=== PATIENT | male | born 1930 | race Caucasian/White ===

== ENCOUNTER 2016-06-03 09:20 | Day surgery (SDC) | payer OTHER ==
--- NOTE | 2016-06-02 15:45 | MB ---
cc: Anne FAROOQ M.D., JOO DATE OF CONSULTATION 05/29/2016 REASON FOR CONSULTATION Pulmonary consultation for a thoracentesis scheduled for next week. HISTORY Mr. Kingston is an 86-year-old white male whom I first saw in March with small pleural effusions. He then was hospitalized at [facility] in mid April for increasing shortness of breath and had a right thoracentesis. Culture of the fluid and cytology were negative. No chemistries reported. I saw him back in the office after that hospitalization. We did a follow-up CT scan on May 26. That reveals fairly significant bilateral pleural effusions left greater than right with pleural nodularity and septations suggesting loculation. I should also mention that the fluid was hemorrhagic when drained on the right in April. He is back in the office today with shortness of breath, but no pain. Appetite has to dwindled and he has lost five pounds. He also saw a home school coordinator because he had an abnormal echocardiogram with left ventricular hypertrophy, diastolic dysfunction and dilated right sided structures, but his left heart was apparently normal with a normal EF and no coronary ischemia on nuclear test. It looks like it is predominantly diastolic heart failure. He had a BNP while in the hospital although that was normal. PAST MEDICAL HISTORY 1. He has a past history of colon cancer 15 years ago. 2. He has had a previous stroke but no significant residual. 3. He has MILTON and is on C-PAP. 4. He has had bilateral hernia repairs. 5. He is also being followed for an elevated PSA by Dr. Casey, may have prostate cancer. ALLERGIES SULFA MEDICATIONS He is on: 1. Baby aspirin 2. previously on Plavix, but has been off that for the last Month. 3. Simvastatin 4. Multiple vitamin 5. Avodart PHYSICAL EXAMINATION An elderly white male in no distress at rest. VITAL SIGNS: 98 degrees, 108/56, pulse 70, RR 18, sat 93% room air. HEAD, EYES, EARS, NOSE, AND THROAT: Sclerae anicteric. Pharynx is clear. Neck veins are flat. No adenopathy in the neck or supraclavicular region. LUNGS: Breath sounds are diminished particularly at the bases with dullness to percussion. No wheezes or congestion. CARDIAC: Regular rhythm. No harsh murmur. ABDOMEN: Soft. EXTREMITIES: No pitting edema or cyanosis. ASSESSMENT/PLAN Mr. Kingston presents with bilateral effusions. A previous thoracentesis on the right was not definitive in terms of establishing a diagnosis, but it was somewhat bloody. We are scheduling him for a thoracentesis on the left for drainage for palliative relief of the dyspnea and also for further evaluation. Further diagnostic and/or therapeutic intervention will depend on the results of this study. I have also explained to he and his daughter, who accompanied him today, that if he would develop increasing shortness of breath prior to his outpatient procedure, he should report directly to the emergency room as he could need to be admitted again. R. MD ALFONSO Casanova/TOMER /10:11 AM /3:45 PM
[2016-06-03 12:00] VITALS: BP 136/72; PULSE 68; RESP 20; TEMP 96.8; O2SAT 97
[2016-06-03 12:15] VITALS: BP 144/69; PULSE 65; RESP 20; TEMP 96.8; O2SAT 97
--- NOTE | 2016-06-03 12:18 | RADRPT ---
EXAM DATE/TIME: 06/03/2016 11:48 [facility] COMPARISON: No previous studies available for comparison. INDICATIONS : Post left thoracentesis. MEDICAL HISTORY : None. SURGICAL HISTORY : None. ENCOUNTER: Initial ACUITY: 1 day PAIN SCORE: 5/10 LOCATION: Left chest FINDINGS: There is no evidence of pneumothorax status post left thoracentesis. A small residual left pleural e ffusion is noted. Bibasilar patchiness is noted consistent with atelectasis and/or infiltrates. Deg enerative changes are noted throughout the thoracic spine. CONCLUSION: 1. No pneumothorax status post left thoracentesis. 2. Small left pleural effusion. 3. Bibasilar patchiness consistent with atelectasis and/or infiltrates. 4. Degenerative changes throughout the thoracic spine. Misael Vaz MD on June 03, 2016 at 12:09 Board Certified Radiologist. This report was verified electronically.
[2016-06-03 13:02] LABS: TOTAL PROTEIN,PLEURAL FLUID 4.2 GM/DL
[2016-06-03 13:10] LABS: PLEURAL FLUID LYMPHS 33 %
--- NOTE | 2016-06-03 15:21 | RADRPT ---
EXAM DATE/TIME: 06/03/2016 10:52 [facility] COMPARISON: No previous studies available for comparison. EXTERNAL COMPARISON: [facility], CT THORAX, W/O CONTRAST, May 26 2016. [facility], CT THORAX, W/O CONTRAST , April 28, 2016. [facility], CHEST- PA & LAT, March 14, 2016. [facility], CHEST - PA & LAT, February 13, 2016. INDICATIONS : Left pleural effusion. MEDICAL HISTORY : Colon cancer. SURGICAL HISTORY : Bilateral hernia repair. ENCOUNTER: Initial ACUITY: 1 day PAIN SCORE: 0/10 LOCATION: Left chest FLUID: Total volume of 450 cc of cloudy, reddish fluid was removed. Fluid was sent to lab for ordered studies. TECHNIQUE: 1. Ultrasound guidance for thoracentesis. 2. Thoracentesis. The risks, benefits, and alternatives to ultrasound guided thoracentesis were explained to the patien t in lay simple terms, including the risk of bleeding and infection. Written and verbal informed con sent was obtained. Appropriate area for thoracentesis was marked under ultrasound guidance with the patient in the uprig ht position. Overlying skin was prepped and draped in the usual sterile fashion and with local anest hetic, a dermatotomy was made with an 11 blade scalpel. A 6 Yemeni thoracentesis catheter was placed in the pleural space and fluid was removed. Catheter was then removed and a sterile dressing applie d. There were no immediate complications. The patient tolerated the procedure well and the left the ultrasound suite in stable condition. Chest radiograph is to be obtained. CONCLUSION: Uncomplicated ultrasound guided left thoracentesis. Misael Vaz MD on June 03, 2016 at 15:19 Board Certified Radiologist. This report was verified electronically.
== END 2016-06-03 12:15 | disposition home or self-care (01) ==
LOC: HRAD 09:20 → HRIP 09:28 → HRAD 12:15
PROVIDERS: ATTEND Internal Medicine
DX: J90 Pleural effusion, not elsewhere classified (principal); G47.33 Obstructive sleep apnea (adult) (pediatric); E78.00 Pure hypercholesterolemia, unspecified; Z79.82 Long term (current) use of aspirin; Z86.73 Personal history of transient ischemic attack (TIA), and cerebral infarction without residual deficits; Z85.038 Personal history of other malignant neoplasm of large intestine
CPT/HCPCS: 32555; 36415; 71010; 82465; 82945; 82947; 83615; 84155; 84157; 87015; 87070; 87102; 87116; 87205; 87206; 88112; 88305; 89051; C1729

== ENCOUNTER 2016-08-01 09:47 | Inpatient (IN) | payer OTHER, MEDICARE ==
[~2016-08-01] VITALS: Ht 172.7 cm; Wt 80.5 kg
[2016-08-11] MEDS ORDERED: AVOD0.5C PO (12:41)
[2016-08-11] MEDS ORDERED: VITA400T18 PO (12:41)
[2016-08-11] MEDS ORDERED: MULT-65 PO (12:41)
[2016-08-11] MEDS ORDERED: VITA100T15 PO (12:41)
[2016-08-11] MEDS ORDERED: VITA500T83 PO (12:41)
[2016-08-11] MEDS ORDERED: CO Q100C9 PO (12:41)
[2016-08-11] MEDS ORDERED: SIMV40TA PO (12:41)
[2016-08-11] MEDS ORDERED: VITA1000 PO (12:41)
[2016-08-11] MEDS ORDERED: FISH1000 PO (12:41)
[2016-08-12] VITALS (10 sets, daily range): BP systolic 124; BP diastolic 61; PULSE 66–74; RESP 24; TEMP 97; O2SAT 96–97
[2016-08-12] MEDS ORDERED: INSULIN HUMAN REGULAR 1,000 UNITS/10 ML VIAL SQ PRN (06:15)
[2016-08-12] MEDS ORDERED: SODIUM CHLORID 0.9% 500 ML IV PRN (06:15)
[2016-08-12] MEDS ORDERED: METOPROLOL TARTRATE 25 MG TAB PO PRN (06:15)
[2016-08-12] MEDS ORDERED: LACTATED RINGER'S 1000 ML IV PRN (06:15)
[2016-08-12] MEDS ORDERED: POVIDONE IODINE 5% (ANTISEPSIS KIT) 4 APPLICATIONS EACH NARE PRN (06:15)
[2016-08-12] MEDS ORDERED: CHLORHEXIDINE GLUCONATE 2 % 1 PACK (2 CLOTHS) TOPICAL PRN (06:15)
[2016-08-12] MEDS ORDERED: BUPIVACAINE LIPOSO PF 1.3% INJ 20 ML, DEXAMETHASONE INJ 4 MG, MORPHINE INJ 10 MG in SOD... P-ARTICULR SCH (07:00)
[2016-08-12] MEDS ORDERED: ceFAZolin INJ 1,000 MG VIAL ONE (07:33)
[2016-08-12] MEDS ORDERED: ACETAMINOPHEN 325 MG TAB PO PRN (09:45)
[2016-08-12] MEDS ORDERED: SODIUM CHLORIDE 0.9% FLUSH 10 ML FLUSH IV FLUSH PRN (09:45)
[2016-08-12] MEDS ORDERED: RESP: ALBUTEROL 2.5 MG/3 ML NEB (PRN) NEB (09:45)
[2016-08-12] MEDS ORDERED: ONDANSETRON HCL 4 MG/2 ML VIAL IV PUSH PRN (09:45)
[2016-08-12] MEDS ORDERED: ACETAMINOPHEN/HYDROcodone 325 MG/5 MG TAB PO PRN (09:45)
[2016-08-12] MEDS ORDERED: MAGNESIUM HYDROXIDE SUSP 30 ML CUP PO PRN (09:45)
[2016-08-12] MEDS ORDERED: Post-op Orders (for Pharmacy) MISC OTHER ONE (09:54)
[2016-08-12] MEDS ORDERED: fentaNYL CITRATE 250 MCG/5 ML AMP ONE (10:07)
--- NOTE | 2016-08-12 10:34 | RADRPT ---
EXAM DATE/TIME: 08/12/2016 10:11 [facility] COMPARISON: CHEST EXPIRATION ONLY, June 03, 2016, 11:48. INDICATIONS : S/p thoracotomy. MEDICAL HISTORY : Carcinoma, colon. SURGICAL HISTORY : hernia repair ENCOUNTER: Initial ACUITY: 1 day PAIN SCORE: Non-responsive. LOCATION: Bilateral chest FINDINGS: A left thoracostomy tube is present. There is also a smaller caliber both sidehole catheter which may be Pleurx catheter. There is sequestered pneumothorax at the lateral left base with interval evacuat ion of effusion. Consolidative changes are present in both bases. Small right effusion is also noted. Cardiac contours are grossly stable. CONCLUSION: Left thoracostomy tube and left chest Pleurx drain in place. Loculated pneumothorax post evacuation o f left effusion Michael Jones MD on August 12, 2016 at 10:29 Board Certified Radiologist. This report was verified electronically.
[2016-08-12] MEDS: ACETAMINOPHEN 1000 MG/100 ML VIAL IV SCH ×3 (11:10→23:28)
[2016-08-12] MEDS: RESP: ALBUTEROL 2.5 MG/3 ML NEB (SCH) NEB ×2 (11:11→20:53)
[2016-08-12] MEDS ORDERED: DO NOT ADM ANY ANTICOAGULANT DRUGS PRN (11:45)
[2016-08-12] MEDS: KETOROLAC TROMETHAMINE 30 MG/ML (IVP) VIAL IV PUSH SCH ×3 (13:18→23:29)
--- NOTE | 2016-08-12 14:11 | PD.OP ---
cc: Sara Ramos MD; Anne Beal MD Operative Report Date of Surgery: Aug 12, 2016 Preoperative Diagnosis: Postoperative Diagnosis: Procedure: 1. Left Video-Assisted Thoracoscopic Surgery (VATS). 2. Evacuation of Pleural Effusion. 3. PleurX catheter placement. 4. Decortication 5. Pleural Biopsy 6. Intercostal Nerve Block . Surgeon: Sara Ramos Automotive Painter(s): Alexia Pacheco Operation and Findings: PREOPERATIVE DIAGNOSES 1. Recurrent Left Pleural Effusion. 2. Loculated Fluid Cavities 3. Empyema POSTOPERATIVE DIAGNOSES Same SURGICAL PROCEDURE 1. Left Video-Assisted Thoracoscopic Surgery (VATS). 2. Evacuation of Pleural Effusion. 3. PleurX catheter placement. 4. Decortication 5. Pleural Biopsy 6. Intercostal Nerve Block SURGEON Sara Ramos MD MATERIAL CHASER STALIN [place] ANESTHESIA General double lumen endotracheal. CALCULUS PROFESSOR FERNANDO Taylor MD PREPARATION ChloraPrep. COUNTS Needle, sponge, and instrument counts are correct. DRAINS One PleurX catheter 32 FR Chest Tube. COMPLICATIONS None. INDICATIONS The patient is a 86 yo gentleman status post previous bilateral thoracenteses for recurrent pleural effusion. The patient is being brought to the operating room for drainage of his left recurrent effusion. DESCRIPTION OF PROCEDURE The patient was brought to the operating room and placed supine on the OR table. Following the induction of adequate general double lumen endotracheal anesthesia and placement of appropriate monitoring devices, the patient was placed in the right lateral decubitus position. The left chest and surrounding areas were then prepped and draped in a standard sterile fashion. A 5 mm camera port was introduced into the 8th intercostal space in posterior axillary line, and the camera introduced. A second 5 mm port was then placed anteriorly under direct visual guidance. Through the port, the suction device was advanced, and approximately 675 mls of bloody fluid evacuated and sent for cytologic and microbiologic analysis. There were multiple loculated fluid cavities in addition to a thick peel around the left lung and the surrounding chest wall. All the loculations were divided and the empyema decorticated. Pleural biopsy was performed and sent for histological analysis. Complete evacuation of all fluid was confirmed under visual guidance. The anterior port was removed and a PleurX catheter was introduced and tunneled for about 5 cm and exited through the anterolateral chest wall. This was maintained in place with a nonabsorbable suture. An additional [address] was placed postero-apically through a separate stab wound. Both of the entry sites were injected with Exparel solution as was the port site. Following confirmation of the catheter in the proper place, the incisions were closed with 3 layers. The chest tube was attached to a suction device, and sterile dressing applied. Intercostal nerve block was performed using Ropivacaine/Morphine solution. The patient tolerated the procedure well and was extubated and transferred to the recovery room in stable condition. Sara Ramos MD Aug 12, 2016 14:11
[2016-08-12] MEDS: SODIUM CHLORIDE 0.9% FLUSH 10 ML FLUSH IV FLUSH SCH (20:56)
[2016-08-12] MEDS: PANTOPRAZOLE SOD 40 MG DELAYED RELEASE TAB PO SCH (20:56)
[2016-08-12] MEDS: DOCUSATE CALCIUM 240 MG CAP PO SCH (20:56)
[2016-08-13] VITALS (25 sets, daily range): BP systolic 112–152; BP diastolic 56–82; PULSE 58–100; RESP 18–20; TEMP 97.5–98.6; O2SAT 95–100
[2016-08-13] MEDS: RESP: ALBUTEROL 2.5 MG/3 ML NEB (SCH) NEB ×5 (03:12→19:11)
[2016-08-13] MEDS: KETOROLAC TROMETHAMINE 30 MG/ML (IVP) VIAL IV PUSH SCH (05:21)
[2016-08-13] MEDS: ACETAMINOPHEN 1000 MG/100 ML VIAL IV SCH (05:23)
[2016-08-13 06:33] LABS: AUTOMATED NEUTROPHIL # 5.9 TH/MM3 (1.8-7.7); BASOPHIL % 0.2 % (0.0-2.0); HEMATOCRIT 34.9 % (39.0-51.0); HEMO FLAGS DIFF FINAL; LYMPH % 12.5 % (9.0-44.0); LYMPHOCYTE # 0.9 TH/MM3 (1.0-4.8); MEAN CELL VOLUME 93.8 FL (80.0-100.0); MEAN CORPUSCULAR HEMOGLOBIN 31.5 PG (27.0-34.0); MEAN CORPUSCULAR HGB CONC 33.6 % (32.0-36.0); MONO % 8.9 % (0.0-8.0); NEUT % 78.4 % (16.0-70.0); PLATELET COUNT 204 TH/MM3 (150-450); RED BLOOD COUNT 3.72 MIL/MM3 (4.50-5.90); RED CELL DISTRIBUTION WIDTH 14.5 % (11.6-17.2); WHITE BLOOD COUNT 7.5 TH/MM3 (4.0-11.0)
[2016-08-13 06:55] LABS: BICARBONATE 33.2 MEQ/L (21.0-32.0); POTASSIUM 4.7 MEQ/L (3.5-5.1)
[2016-08-13] MEDS: SODIUM CHLORIDE 0.9% FLUSH 10 ML FLUSH IV FLUSH SCH ×2 (07:43→21:00)
--- NOTE | 2016-08-13 14:12 | PD.CAR.PN ---
CVT Progress Note Subjective/Hospital Course: 86 yo with recurrent bilateral pleural effusions, s/p multiple thoracenteses 08/12 SURGICAL PROCEDURE 1. Left Video-Assisted Thoracoscopic Surgery (VATS). 2. Evacuation of Pleural Effusion. 3. PleurX catheter placement. 4. Decortication 5. Pleural Biopsy 6. Intercostal Nerve Block 08/13 Doing well Ambulating in hallway Maintain CT Likely D/C CT tomorrow and discharge home Objective: Vital Signs Date Time Temp Pulse Resp B/P Pulse Ox O2 Delivery O2 Flow Rate FiO2 08/13/16 14:04 74 08/13/16 13:13 71 08/13/16 12:04 71 08/13/16 11:29 64 08/13/16 11:29 97 Nasal Cannula 2.00 08/13/16 11:29 98.0 64 18 112/58 97 08/13/16 10:32 65 08/13/16 09:54 68 08/13/16 09:46 96 Nasal Cannula 2.00 08/13/16 08:45 58 08/13/16 08:45 100 Nasal Cannula 3.00 08/13/16 08:45 97.5 69 18 118/56 100 08/13/16 06:00 64 08/13/16 05:00 78 08/13/16 04:03 69 08/13/16 03:56 97 Nasal Cannula 2.50 08/13/16 03:00 60 08/13/16 02:00 62 08/13/16 01:00 68 08/13/16 00:00 62 08/13/16 00:00 97 Nasal Cannula 2.50 08/12/16 23:00 68 08/12/16 22:00 74 08/12/16 21:00 70 08/12/16 20:53 97 Nasal Cannula 2.00 08/12/16 20:00 97 Nasal Cannula 2.00 08/12/16 20:00 66 08/12/16 19:28 18 08/12/16 19:28 18 08/12/16 19:00 70 08/12/16 18:00 74 08/12/16 17:00 70 08/12/16 16:00 74 08/12/16 15:50 97.8 71 16 110/58 95 Nasal Cannula 2 08/12/16 15:00 70 15 110/55 96 Nasal Cannula 2 Labs: Laboratory Tests Test 08/13/16 05:16 White Blood Count 7.5 TH/MM3 (4.0-11.0) Red Blood Count 3.72 MIL/MM3 (4.50-5.90) Hemoglobin 11.7 GM/DL (13.0-17.0) Hematocrit 34.9 % (39.0-51.0) Mean Corpuscular Volume 93.8 FL (80.0-100.0) Mean Corpuscular Hemoglobin 31.5 PG (27.0-34.0) Mean Corpuscular Hemoglobin 33.6 % Concent (32.0-36.0) Red Cell Distribution Width 14.5 % (11.6-17.2) Platelet Count 204 TH/MM3 (150-450) Mean Platelet Volume 8.4 FL (7.0-11.0) Neutrophils (%) (Auto) 78.4 % (16.0-70.0) Lymphocytes (%) (Auto) 12.5 % (9.0-44.0) Monocytes (%) (Auto) 8.9 % (0.0-8.0) Eosinophils (%) (Auto) 0.0 % (0.0-4.0) Basophils (%) (Auto) 0.2 % (0.0-2.0) Neutrophils # (Auto) 5.9 TH/MM3 (1.8-7.7) Lymphocytes # (Auto) 0.9 TH/MM3 (1.0-4.8) Monocytes # (Auto) 0.7 TH/MM3 (0-0.9) Eosinophils # (Auto) 0.0 TH/MM3 (0-0.4) Basophils # (Auto) 0.0 TH/MM3 (0-0.2) CBC Comment DIFF FINAL Differential Comment Sodium Level 142 MEQ/L (136-145) Potassium Level 4.7 MEQ/L (3.5-5.1) Chloride Level 104 MEQ/L (98-107) Carbon Dioxide Level 33.2 MEQ/L (21.0-32.0) Anion Gap 5 MEQ/L (5-15) Blood Urea Nitrogen 16 MG/DL (7-18) Creatinine 0.67 MG/DL (0.60-1.30) Estimat Glomerular Filtration 113 ML/MIN Rate (>89) Random Glucose 113 MG/DL (74-106) Calcium Level 8.7 MG/DL (8.5-10.1) Result Diagram: 08/13/16 0516 08/13/16 0516 Sara Ramos MD Aug 13, 2016 14:12
[2016-08-13] MEDS: PANTOPRAZOLE SOD 40 MG DELAYED RELEASE TAB PO SCH (20:42)
[2016-08-13] MEDS: DOCUSATE CALCIUM 240 MG CAP PO SCH (20:42)
[2016-08-14] VITALS (29 sets, daily range): BP systolic 137–154; BP diastolic 60–74; PULSE 68–103; RESP 16–22; TEMP 97.9–98.6; O2SAT 91–98
[2016-08-14] MEDS: RESP: ALBUTEROL 2.5 MG/3 ML NEB (SCH) NEB ×4 (04:10→22:40)
--- NOTE | 2016-08-14 08:12 | PD.CAR.PN ---
CVT Progress Note Subjective/Hospital Course: 86 yo with recurrent bilateral pleural effusions, s/p multiple thoracenteses 08/12 SURGICAL PROCEDURE 1. Left Video-Assisted Thoracoscopic Surgery (VATS). 2. Evacuation of Pleural Effusion. 3. PleurX catheter placement. 4. Decortication 5. Pleural Biopsy 6. Intercostal Nerve Block 08/13 Doing well Ambulating in hallway Maintain CT Likely D/C CT tomorrow and discharge home 08/[address] for another day D/C CT tomorrow with plans for [facility] to drain PleurX daily D/C home tomorrow Objective: Vital Signs Date Time Temp Pulse Resp B/P Pulse Ox O2 Delivery O2 Flow Rate FiO2 08/14/16 07:30 16 08/14/16 07:27 77 08/14/16 06:31 79 08/14/16 05:00 81 08/14/16 04:13 91 21 08/14/16 04:00 103 08/14/16 03:00 97.9 95 20 138/74 94 08/14/16 03:00 94 Nasal Cannula 1.00 08/14/16 03:00 76 08/14/16 02:00 72 08/14/16 01:00 68 08/14/16 00:00 74 08/13/16 23:00 96 Nasal Cannula 1.00 08/13/16 23:00 71 08/13/16 23:00 98.5 80 20 148/74 96 08/13/16 22:00 78 08/13/16 21:00 78 08/13/16 20:00 79 08/13/16 19:19 98 Nasal Cannula 2.00 08/13/16 19:00 96 Nasal Cannula 1.00 08/13/16 19:00 98.6 76 18 133/68 96 08/13/16 19:00 76 08/13/16 18:05 78 08/13/16 17:13 81 08/13/16 16:15 100 08/13/16 15:30 95 Nasal Cannula 1.00 08/13/16 15:30 78 08/13/16 15:30 98.2 77 18 152/82 95 08/13/16 14:04 74 08/13/16 13:13 71 08/13/16 12:04 71 08/13/16 11:29 64 08/13/16 11:29 97 Nasal Cannula 2.00 08/13/16 11:29 98.0 64 18 112/58 97 08/13/16 10:32 65 08/13/16 09:54 68 08/13/16 09:46 96 Nasal Cannula 2.00 08/13/16 08:45 58 08/13/16 08:45 100 Nasal Cannula 3.00 08/13/16 08:45 97.5 69 18 118/56 100 Result Diagram: 08/13/16 0516 08/13/16 0516 Sara Ramos MD Aug 14, 2016 08:12
[2016-08-14] MEDS ORDERED: DOCU2.5C PO (08:16)
[2016-08-14] MEDS ORDERED: HYDR-3516 PO (08:16)
--- NOTE | 2016-08-14 08:18 | HHI.FF ---
Face to Face Verification Diagnosis: (1) Empyema lung (2) Pleural effusion Home Health Nursing Order: Medical education Wound care and dressing changes Nursing assessment with vital signs Instructions: Drain Pleur X catheter daily and record outputs please I have seen patient Yannick Kingston on 08/14/16. My clinical findings support the need for the requested home health care services because: Deconditioned w/ increased weakness I certify that my clinical findings support that this patient is homebound because: Post-op weakness Sara Ramos MD Aug 14, 2016 08:18
[2016-08-14] MEDS: SODIUM CHLORIDE 0.9% FLUSH 10 ML FLUSH IV FLUSH SCH ×2 (09:00→21:27)
[2016-08-14] MEDS: PANTOPRAZOLE SOD 40 MG DELAYED RELEASE TAB PO SCH (21:27)
[2016-08-14] MEDS: DOCUSATE CALCIUM 240 MG CAP PO SCH (21:27)
[2016-08-15] VITALS (27 sets, daily range): BP systolic 139–159; BP diastolic 72–79; PULSE 80–96; RESP 18–20; TEMP 97.7–98.4; O2SAT 94–96
[2016-08-15] MEDS: RESP: ALBUTEROL 2.5 MG/3 ML NEB (SCH) NEB ×4 (04:30→21:21)
[2016-08-15] MEDS: SODIUM CHLORIDE 0.9% FLUSH 10 ML FLUSH IV FLUSH SCH ×2 (08:26→20:41)
[2016-08-15] MEDS: ACETAMINOPHEN/HYDROcodone 325 MG/5 MG TAB PO PRN (14:57)
[2016-08-15] MEDS: DOCUSATE CALCIUM 240 MG CAP PO SCH (20:40)
[2016-08-15] MEDS: PANTOPRAZOLE SOD 40 MG DELAYED RELEASE TAB PO SCH (20:40)
[2016-08-16] VITALS (15 sets, daily range): BP systolic 126–154; BP diastolic 54–78; PULSE 74–89; RESP 15–18; TEMP 97.6–98.5; O2SAT 93–96
[2016-08-16] MEDS: RESP: ALBUTEROL 2.5 MG/3 ML NEB (SCH) NEB ×2 (03:53→09:32)
[2016-08-16] MEDS: SODIUM CHLORIDE 0.9% FLUSH 10 ML FLUSH IV FLUSH SCH (09:34)
--- NOTE | 2016-08-16 11:28 | HHI.DS ---
Discharge Summary Admission Date Aug 12, 2016 at 05:33 Discharge Date: Aug 16, 2016 Admitting Diagnosis Recurrent left pleural effusion (1) Pleural effusion Diagnosis: Principal Procedures Left VATS to drain pleural effusion, pleurex catheter placement Brief History 86 yo with recurrent bilateral pleural effusions, s/p multiple thoracenteses CBC/BMP: 08/13/16 0516 08/13/16 0516 Imaging Last Impressions Chest X-Ray 08/12/16 0000 Signed Impressions: Service Date/Time: Friday, August 12, 2016 10:11 - CONCLUSION: Left thoracostomy tube and left chest Pleurx drain in place. Loculated pneumothorax post evacuation of left effusion Michael Jones MD PE at Discharge chest - CTA COR - RRR ABD - soft, NT Hospital Course 08/12 SURGICAL PROCEDURE 1. Left Video-Assisted Thoracoscopic Surgery (VATS). 2. Evacuation of Pleural Effusion. 3. PleurX catheter placement. 4. Decortication 5. Pleural Biopsy 6. Intercostal Nerve Block 08/13 Doing well Ambulating in hallway Maintain CT Likely D/C CT tomorrow and discharge home 08/[address] for another day D/C CT tomorrow with plans for [facility] to drain PleurX daily D/C home tomorrow Pt Condition on Discharge: Good Discharge Disposition: Disch w/ Home Health Serv Discharge Instructions DIET: Follow Instructions for: Heart Healthy Diet Activities you can perform: Weight Bearing as Moriah, Shower Only-No Bath Follow up Referrals: Appointment for Follow Up with Sara Ramos MD Appointment for Follow Up with Anne Beal MD Appointment for Follow Up with Dr Zoraida Garcia New Medications: Docusate Calcium (Sm Stool Softener) 240 Mg Cap 240 MG PO HS c Days 14 CAP Hydrocodone-Acetaminophen (Hydrocodone-Acetaminophen) 5-325 mg Tab 1 TAB PO Q6HR PRN PAIN SCALE 3 TO 5 #20 TAB Continued Medications: Ascorbic Acid ER (Vitamin C ER) 500 Mg Brandon 500 MG PO DAILY Nutritional Supplement Ref 0 TAB Cholecalciferol (Vitamin D-1000) 1,000 Unit Tab 1000 UNITS PO DAILY Nutritional Supplement #1 Ref 0 BOTTLE Coenzyme Q10 (Ubidecarenone) (Co Q 10) 100 Mg Cap 100 MG PO DAILY Cyanocobalamin (Vitamin B12) 100 Mcg Tab 100 MCG PO DAILY #1 BOTTLE Dutasteride (Avodart) 0.5 Mg Cap 0.5 MG PO DAILY Manage Prostate Problems #30 Ref 0 CAP Multiple Vitamin (Multi-Vitamin Daily) 1 Tab Tab 1 TAB PO DAILY Nutritional Supplement Ref 0 TAB [place]-3 Fatty Acids (Fish Oil) 1,000 Mg Cap 1000 MG PO DAILY Simvastatin (Simvastatin) 40 Mg Tab 40 MG PO HS Cholesterol Management #30 Ref 0 TAB Vitamin E Acid Succinate (Vitamin E) 400 Unit Tablet 400 UNIT PO DAILY Naz Licea MD Aug 16, 2016 11:28
[2016-08-16] MEDS: ACETAMINOPHEN/HYDROcodone 325 MG/5 MG TAB PO PRN (12:44)
== END 2016-08-16 14:20 | disposition home or self-care (01) | DRG 163 ==
LOC: HSDI 08-12 05:33 → HCIN 08-12 15:56
PROVIDERS: ADMIT Thoracic Surgery (Cardiothoracic Vascular Surgery); ATTEND Thoracic Surgery (Cardiothoracic Vascular Surgery)
PROC: 0BBP4ZX Excision of Left Pleura, Percutaneous Endoscopic Approach, Diagnostic (ICD-10-PCS; 2016-08-12)
PROC: 0W9B40Z Drainage of Left Pleural Cavity with Drainage Device, Percutaneous Endoscopic Approach (ICD-10-PCS; 2016-08-12)
PROC: 3E0T3CZ (ICD-10-PCS; 2016-08-12)
PROC: 0BDP4ZZ Extraction of Left Pleura, Percutaneous Endoscopic Approach (ICD-10-PCS; principal; 2016-08-12 07:18)
DX: J90 Pleural effusion, not elsewhere classified (principal); J86.9 Pyothorax without fistula; J44.9 Chronic obstructive pulmonary disease, unspecified; Z88.2 Allergy status to sulfonamides; E78.5 Hyperlipidemia, unspecified; I25.2 Old myocardial infarction; Z86.73 Personal history of transient ischemic attack (TIA), and cerebral infarction without residual deficits; Z85.038 Personal history of other malignant neoplasm of large intestine
CPT/HCPCS: 36415; 71010; 80048; 81001; 85025; 85027; 85610; 85730; 86850; 86900; 86901; 87015; 87070; 87102; 87116; 87205; 87206; 88112; 88305; 93005; 94150; 94640; 94664; C9290; J0131; J0690; J1100; J1885; J2270; J3010; J7120; J7613

== ENCOUNTER → 2016-08-11 | Outpatient (CLI) | payer OTHER ==
[~2016-08-11] MED LIST: AVOD0.5C PO; CO Q100C9 PO; DOCU2.5C PO; FISH1000 PO; HYDR-3516 PO; MULT-65 PO; SIMV40TA PO; VITA1000 PO; VITA100T15 PO; VITA400T18 PO; VITA500T83 PO
[2016-08-11 13:24] LABS: HEMATOCRIT 41.6 % (39.0-51.0); MEAN CELL VOLUME 94.9 FL (80.0-100.0); MEAN CORPUSCULAR HEMOGLOBIN 30.6 PG (27.0-34.0); MEAN CORPUSCULAR HGB CONC 32.2 % (32.0-36.0); PLATELET COUNT 228 TH/MM3 (150-450); RED BLOOD COUNT 4.38 MIL/MM3 (4.50-5.90); RED CELL DISTRIBUTION WIDTH 14.9 % (11.6-17.2); REVIEW FLAG FINAL; WHITE BLOOD COUNT 6.3 TH/MM3 (4.0-11.0)
[2016-08-11 13:33] LABS: APTT (PATIENT) 28.1 SEC (24.3-30.1); PROTHROMBIN TIME - PATIENT 10.7 SEC (9.8-11.6)
[2016-08-11 13:33] LABS: BLOOD, URINE NEG (NEG); CALCIUM OXALATE CRYSTALS,URINE RARE /hpf; COMMENT (UR) CULT NOT INDICATED; CULTURE IF INDICATED CULT NOT INDICATED; GLUCOSE,URINE NEG (NEG); KETONE, URINE NEG (NEG); MUCUS URINE FEW /lpf (OCC); NITRITE,URINE NEG (NEG); PH, URINE 6.5 (5.0-8.5); URINE COLOR YELLOW (YELLW/STRAW)
[2016-08-11 13:45] LABS: BICARBONATE 33.9 MEQ/L (21.0-32.0); POTASSIUM 4.6 MEQ/L (3.5-5.1)
--- NOTE | 2016-08-12 16:50 | EKG ---
Date Performed: 08/11/2016 Time Performed: 12:32:39 PTAGE: 86 years EKG: Sinus rhythm POSSIBLE LEFT ATRIAL ENLARGEMENT POSSIBLE RIGHT VENTRICULAR CONDUCTION DELAY BORDERLINE ECG NO PREVIOUS TRACING DOCTOR: Jamel Carrera Interpretating Date/Time 08/12/2016 16:48:10
== END ==
LOC: CPRE 12:01
PROVIDERS: ATTEND Thoracic Surgery (Cardiothoracic Vascular Surgery)
DX: Z01.812 Encounter for preprocedural laboratory examination (principal); Z01.810 Encounter for preprocedural cardiovascular examination; J90 Pleural effusion, not elsewhere classified; R94.31 Abnormal electrocardiogram [ECG] [EKG]
CPT/HCPCS: 36415; 80048; 81001; 85027; 85610; 85730; 86850; 86900; 86901; 93005

== ENCOUNTER → 2016-09-24 | Day surgery (SDC) | payer OTHER ==
[~2016-09-24] VITALS: Ht 172.7 cm; Wt 77.6 kg
[~2016-09-24] MED LIST changes: +BUPIVACAINE HCL PF 0.5% 30 ML VIAL ONE; +CHLORHEXIDINE GLUCONATE 2 % 1 PACK (2 CLOTHS) TOPICAL PRN; +GENTAMICIN SULFATE 80 MG/2 ML VIAL ONE; +INSULIN HUMAN REGULAR 1,000 UNITS/10 ML VIAL SQ PRN; +LACTATED RINGER'S 1000 ML IV PRN; +METOPROLOL TARTRATE 25 MG TAB PO PRN; +MIDAZOLAM HCL 2 MG/2 ML VIAL ONE; +POVIDONE IODINE 5% (ANTISEPSIS KIT) 4 APPLICATIONS EACH NARE PRN; +PROPOFOL 200 MG/20 ML AMP IV ONE; +SODIUM CHLORID 0.9% 500 ML IV PRN; +VANCOMYCIN 500 MG VIAL ONE; +ceFAZolin INJ 1,000 MG VIAL ONE
[2016-09-24 06:08] VITALS: BP 125/59; PULSE 69; RESP 20; TEMP 97.7; O2SAT 96
[2016-09-24 06:24] LABS: APTT (PATIENT) 25.8 SEC (24.3-30.1); PROTHROMBIN TIME - PATIENT 10.8 SEC (9.8-11.6)
--- NOTE | 2016-09-24 08:12 | PD.OP ---
cc: Sara Ramos MD Operative Report Date of Surgery: Sep 24, 2016 Preoperative Diagnosis: Postoperative Diagnosis: Procedure: Removal of Pleur-X catheter Surgeon: Sara Ramos Hooking Machine Operator(s): Alexia Cobian Operation and Findings: DATE OF SURGERY 09/24/16 PREOPERATIVE DIAGNOSIS 1. Recurrent Left pleural effusion 2. Status post pleurodesis and Pleur-X catheter placement. 3. Resolving pleural effusion. SURGICAL PROCEDURES Removal of Pleur-X catheter SURGEON Dr. Deejay Ramos PACKAGE LIFT OPERATOR Chapo Cobian, [facility] ANESTHESIA Local with IV sedation SUPERINTENDENT PRODUCTION FERNANDO Rosas MD Sponge, instrument counts correct. DRAINS Bone COMPLICATIONS None. INDICATION Mr. Duke is 86 year old gentleman with recurrent left pleural effusion who underwent a left VATS with decortication and Pleur-X catheter placement. With resolution of his pleural drainage and minimal output from his catheter, he is now being taken back to the operating room for removal of the catheter. PROCEDURE IN DETAIL The patient was brought to the operating room and placed supine on the OR table. Following the placement of appropriate monitoring devices. IV sedation was given and the left chest and surrounding area were prepped and draped in standard sterile fashion. The area overlying the exit site of the Pleurx catheter as well as the tunnelled portion was anesthetized with 0.5% Marcaine with epinephrine. The securing stitch was then removed and with gentle blunt and sharp dissection, the polyester cuff was then dissected free off the subcutaneous tissue and the Pleurx catheter was removed on bloc in its entirety without any difficulties. Sterile dressing was applied over the exit site and the patient was transferred to recovery room in stable condition. Sara Ramos MD Sep 24, 2016 08:12
[2016-09-24 08:40] VITALS: BP 114/52; PULSE 67; RESP 18; TEMP 97; O2SAT 96
--- NOTE | 2016-09-24 10:32 | RADRPT ---
EXAM DATE/TIME: 09/24/2016 09:31 [facility] COMPARISON: CHEST SINGLE AP, August 12, 2016, 10:11. INDICATIONS : Left chest tube removal. MEDICAL HISTORY : Carcinoma, colon. SURGICAL HISTORY : hernia repair ENCOUNTER: Initial ACUITY: 1 day PAIN SCORE: 0/10 LOCATION: Bilateral chest FINDINGS: Left-sided chest tube and Pleurx tube have been removed. A loculated air pocket remains evident in the left base laterally. Significant opacity persists within the right base with blunting of the costophrenic angle. Heart and mediastinal structures are stable. CONCLUSION: 1. Small loculated pneumothorax in the left lung base without significant fluid accumulation. 2. Status post removal of chest tube and Pleurx catheter 3. Persistent opacity in the right lung base with small effusion. Jeremie Gomez MD on September 24, 2016 at 10:22 Board Certified Radiologist. This report was verified electronically.
== END | disposition home or self-care (01) ==
LOC: HSDC 05:23
PROVIDERS: ATTEND Thoracic Surgery (Cardiothoracic Vascular Surgery)
DX: J90 Pleural effusion, not elsewhere classified (principal); Z01.818 Encounter for other preprocedural examination
CPT/HCPCS: 00520; 32552; 71010; 85610; 85730; J0690; J1580; J2250; J3010; J3370

== ENCOUNTER 2016-12-04 10:55 | Emergency (ER) | payer OTHER ==
[~2016-12-04] VITALS: Ht 172.7 cm; Wt 75.0 kg
[~2016-12-04 10:55] MED LIST changes: -BUPIVACAINE HCL PF 0.5% 30 ML VIAL ONE; -CHLORHEXIDINE GLUCONATE 2 % 1 PACK (2 CLOTHS) TOPICAL PRN; -GENTAMICIN SULFATE 80 MG/2 ML VIAL ONE; -INSULIN HUMAN REGULAR 1,000 UNITS/10 ML VIAL SQ PRN; -LACTATED RINGER'S 1000 ML IV PRN; -METOPROLOL TARTRATE 25 MG TAB PO PRN; -MIDAZOLAM HCL 2 MG/2 ML VIAL ONE; -POVIDONE IODINE 5% (ANTISEPSIS KIT) 4 APPLICATIONS EACH NARE PRN; -PROPOFOL 200 MG/20 ML AMP IV ONE; -SODIUM CHLORID 0.9% 500 ML IV PRN; -VANCOMYCIN 500 MG VIAL ONE; -ceFAZolin INJ 1,000 MG VIAL ONE
[2016-12-04 10:56] VITALS: BP 129/60; PULSE 83; RESP 20; TEMP 98.4; O2SAT 98
[2016-12-04] MEDS ORDERED: SODIUM CHLORIDE 0.9% FLUSH 5 ML FLUSH IV FLUSH PRN (11:30)
--- NOTE | 2016-12-04 11:58 | PD ---
HPI Chief Complaint: Altered Mental Status Time Seen by Provider: 11:21 Travel History International Travel<30 days: No Contact w/Intl Traveler<30days: No Traveled to known affect area: No History of Present Illness HPI Patient comes in with his daughter from his primary care doctor's office for evaluation of altered mental status ongoing over the past year. His daughter reports that she noticed that he was becoming confused, having auditory and visual hallucinations about a year ago and has been getting progressively worse over the past several months. Patient states she took him to the primary care doctor to make sure he didn't have a urinary tract infection as she heard that this could cause these symptoms. Reports that they did a urinalysis in the office that was negative and was sent here for rule out possibly a stroke. Daughter states patient does not complain of any pain and has had no fevers. Denies anything making this better. States is progressively getting worse. Patient denies any complaints or concerns. Denies any pain anywhere, shortness of breath, abdominal pain, chest pain, headache, or fevers. 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) Diabetes: No Diminished Hearing: Yes Endocrine: No Genitourinary: No Hepatitis: No Hiatal Hernia: No Immune Disorder: No Medical other: Yes (PROSTATE ISSUES) Musculoskeletal: No Neurologic: Yes (tia) Psychiatric: Yes (alzheimers) Reproductive: No Respiratory: Yes (COPD) Radiation Therapy: No Sleep Apnea: Yes Thyroid Disease: No Past Surgical History Abdominal Surgery: Yes (BILATERAL INGUINAL HERNIA REPAIR WITH MESH, COLON RESECTION) AICD: No Body Medical Devices: ABDOMINAL MESH, left lung pleurex Cardiac Surgery: No Ear Surgery: No Endocrine Surgery: No Eye Surgery: No Genitourinary Surgery: No Gynecologic Surgery: No Joint Replacement: No Neurologic Surgery: No Oral Surgery: No Pacemaker: No Thoracic Surgery: Yes (THORACOTOMY x2, each lung drained once and pleurex placed L lung) Other Surgery: Yes Social History Alcohol Use: No Tobacco Use: No Substance Use: No Allergies-Medications (Allergen,Severity, Reaction): Coded Allergies: Sulfa (Sulfonamide Antibiotics) (Unverified Allergy, Severe, Hives, ) Reported Meds & Prescriptions Reported Meds & Active Scripts Active Hydrocodone-Acetaminophen 5-325 mg Tab 1 Tab PO Q6HR PRN Sm Stool Softener (Docusate Calcium) 240 Mg Cap 240 Mg PO HS 14 Days Reported Vitamin C ER (Ascorbic Acid) 500 Mg Brandon 500 Mg PO DAILY Vitamin E (Vitamin E Acid Succinate) 400 Unit Tablet 400 Unit PO DAILY Co Q 10 (Coenzyme Q10 (Ubidecarenone)) 100 Mg Cap 100 Mg PO DAILY Vitamin B12 (Cyanocobalamin) 100 Mcg Tab 100 Mcg PO DAILY Fish Oil ([place]-3 Fatty Acids) 1,000 Mg Cap 1,000 Mg PO DAILY Vitamin D-1000 (Cholecalciferol) 1,000 Unit Tab 1,000 Units PO DAILY Multi-Vitamin Daily (Multiple Vitamin) 1 Tab Tab 1 Tab PO DAILY Avodart (Dutasteride) 0.5 Mg Cap 0.5 Mg PO DAILY Simvastatin 40 Mg Tab 40 Mg PO HS Review of Systems Except as stated in HPI: all other systems reviewed are Neg Physical Exam Narrative GENERAL: Well-developed, well nourished, in no acute distress, and non-ill appearing. SKIN: Focused skin assessment warm and dry. HEAD: Atraumatic. Normocephalic. EYES: Pupils equal and round. EOMI. No scleral icterus. No injection or drainage. ENT: No nasal bleeding or discharge. Mucous membranes pink and moist. NECK: Trachea midline. Supple. No nuclear rigidity. CARDIOVASCULAR: Regular rate and rhythm. No murmur appreciated. RESPIRATORY: No accessory muscle use. No respiratory distress. Clear to auscultation. Breath sounds equal bilaterally. GASTROINTESTINAL: Abdomen soft, non-tender, nondistended, and no guarding. Hepatic and splenic margins not palpable. No pulsatile mass. MUSCULOSKELETAL: No obvious deformities. No clubbing. No cyanosis. No edema. Full range of motion. NEUROLOGICAL: Awake and alert. No obvious cranial nerve deficits. Motor grossly within normal limits. Normal speech. PSYCHIATRIC: Appropriate mood and affect; insight and judgment normal. Data Data Last Documented VS Vital Signs Date Time Temp Pulse Resp B/P (MAP) Pulse Ox O2 Delivery O2 Flow Rate FiO2 12/04/16 10:56 98.4 83 20 129/60 (83) 98 Orders Orders Basic Metabolic Panel (Bmp) (12/04/16 11:28) Complete Blood Count With Diff (12/04/16 11:28) Urinalysis - C+S If Indicated (12/04/16 11:28) Ct Brain W/O Iv Contrast(Rout) (12/04/16 11:28) Ecg Monitoring (12/04/16 11:28) Iv Access Insert/Monitor (12/04/16 11:28) Oximetry (12/04/16 11:28) Sodium Chloride 0.9% Flush (Ns Flush) (12/04/16 11:30) Magnesium (Mg) (12/04/16 11:28) Ed Discharge Order (12/04/16 13:20) Labs Laboratory Tests Test 12/04/16 11:48 White Blood Count 5.2 TH/MM3 Red Blood Count 4.09 MIL/MM3 Hemoglobin 12.7 GM/DL Hematocrit 39.0 % Mean Corpuscular Volume 95.5 FL Mean Corpuscular Hemoglobin 31.1 PG Mean Corpuscular Hemoglobin Concent 32.5 % Red Cell Distribution Width 14.8 % Platelet Count 190 TH/MM3 Mean Platelet Volume 8.0 FL Neutrophils (%) (Auto) 77.4 % Lymphocytes (%) (Auto) 12.5 % Monocytes (%) (Auto) 9.3 % Eosinophils (%) (Auto) 0.5 % Basophils (%) (Auto) 0.3 % Neutrophils # (Auto) 4.0 TH/MM3 Lymphocytes # (Auto) 0.6 TH/MM3 Monocytes # (Auto) 0.5 TH/MM3 Eosinophils # (Auto) 0.0 TH/MM3 Basophils # (Auto) 0.0 TH/MM3 CBC Comment DIFF FINAL Differential Comment Urine Color YELLOW Urine Turbidity CLEAR Urine pH 6.5 Urine Specific [place] 1.017 Urine Protein NEG mg/dL Urine Glucose (UA) NEG mg/dL Urine Ketones NEG mg/dL Urine Occult Blood NEG Urine Nitrite NEG Urine Bilirubin NEG Urine Urobilinogen LESS THAN 2.0 MG/DL Urine Leukocyte Esterase SMALL Urine RBC 4 /hpf Urine WBC 2 /hpf Urine Squamous Epithelial Cells <1 /hpf Urine Mucus FEW /lpf Microscopic Urinalysis Comment CATH-CULT NOT IND Blood Urea Nitrogen 16 MG/DL Creatinine 0.67 MG/DL Random Glucose 116 MG/DL Calcium Level 8.5 MG/DL Magnesium Level 2.4 MG/DL Sodium Level 140 MEQ/L Potassium Level 4.4 MEQ/L Chloride Level 102 MEQ/L Carbon Dioxide Level 36.0 MEQ/L Anion Gap 2 MEQ/L Estimat Glomerular Filtration Rate 113 ML/MIN MDM Medical Decision Making Medical Screen Exam Complete: Yes Emergency Medical Condition: Yes Interpretation(s) Laboratory Tests Test 12/04/16 11:48 White Blood Count 5.2 TH/MM3 (4.0-11.0) Red Blood Count 4.09 MIL/MM3 (4.50-5.90) Hemoglobin 12.7 GM/DL (13.0-17.0) Hematocrit 39.0 % (39.0-51.0) Mean Corpuscular Volume 95.5 FL (80.0-100.0) Mean Corpuscular Hemoglobin 31.1 PG (27.0-34.0) Mean Corpuscular Hemoglobin Concent 32.5 % (32.0-36.0) Red Cell Distribution Width 14.8 % (11.6-17.2) Platelet Count 190 TH/MM3 (150-450) Mean Platelet Volume 8.0 FL (7.0-11.0) Neutrophils (%) (Auto) 77.4 % (16.0-70.0) Lymphocytes (%) (Auto) 12.5 % (9.0-44.0) Monocytes (%) (Auto) 9.3 % (0.0-8.0) Eosinophils (%) (Auto) 0.5 % (0.0-4.0) Basophils (%) (Auto) 0.3 % (0.0-2.0) Neutrophils # (Auto) 4.0 TH/MM3 (1.8-7.7) Lymphocytes # (Auto) 0.6 TH/MM3 (1.0-4.8) Monocytes # (Auto) 0.5 TH/MM3 (0-0.9) Eosinophils # (Auto) 0.0 TH/MM3 (0-0.4) Basophils # (Auto) 0.0 TH/MM3 (0-0.2) CBC Comment DIFF FINAL Differential Comment Urine Color YELLOW (YELLW/STRAW) Urine Turbidity CLEAR (CLEAR) Urine pH 6.5 (5.0-8.5) Urine Specific [place] 1.017 (1.002-1.035) Urine Protein NEG mg/dL (NEG-TRACE) Urine Glucose (UA) NEG mg/dL (NEG) Urine Ketones NEG mg/dL (NEG) Urine Occult Blood NEG (NEG) Urine Nitrite NEG (NEG) Urine Bilirubin NEG (NEG) Urine Urobilinogen LESS THAN 2.0 MG/DL (LESS Urine Leukocyte Esterase SMALL (NEG) Urine RBC 4 /hpf (0-3) Urine WBC 2 /hpf (0-5) Urine Squamous Epithelial Cells <1 /hpf (0-5) Urine Mucus FEW /lpf (OCC) Microscopic Urinalysis Comment CATH-CULT NOT IND Blood Urea Nitrogen 16 MG/DL (7-18) Creatinine 0.67 MG/DL (0.60-1.30) Random Glucose 116 MG/DL (74-106) Calcium Level 8.5 MG/DL (8.5-10.1) Magnesium Level 2.4 MG/DL (1.5-2.5) Sodium Level 140 MEQ/L (136-145) Potassium Level 4.4 MEQ/L (3.5-5.1) Chloride Level 102 MEQ/L (98-107) Carbon Dioxide Level 36.0 MEQ/L (21.0-32.0) Anion Gap 2 MEQ/L (5-15) Estimat Glomerular Filtration Rate 113 ML/MIN (>89) CT the head read by the radiologist shows: No acute intracranial abnormalities. Differential Diagnosis Electrolyte abnormality, UTI, CVA, TIA, sepsis, dementia, other Narrative Course Patient in no obvious distress upon re-evaluation. All pertinent laboratory/ Radiology result(s) discussed with patient/family. Discussed patient with Dr. Mac prior to discharge, who is in agreement with plan of care and disposition. Any questions/concerns in reference to patient diagnosis/condition discussed and clarified prior to patient's discharge. Reinforced sheer importance of close follow up with patient's primary physician or primary care clinic and/or neurologist. Instructed patient to return to ED immediately, if symptoms return/ worsen. Patient and daughter showed understanding of above instructions. Further instructions and recommendations were detailed in discharge paperwork. Patient ambulated without difficulty out of ED at discharge. Diagnosis Primary Impression: Intermittent confusion Referrals: Danial Bauman PhD MD Patient Instructions: General Instructions Additional Instructions: Follow-up with your primary care physician and/or neurologist next week for reevaluation. Return to the emergency department if symptoms get worse. Disposition: 01 DISCHARGE HOME Condition: Stable Gabriel Khoury Dec 04, 2016 11:58
[2016-12-04 12:06] LABS: BASOPHIL % 0.3 % (0.0-2.0); EOSINOPHIL % 0.5 % (0.0-4.0); HEMO FLAGS DIFF FINAL; LYMPH % 12.5 % (9.0-44.0); LYMPHOCYTE # 0.6 TH/MM3 (1.0-4.8); MEAN CELL VOLUME 95.5 FL (80.0-100.0); MEAN CORPUSCULAR HEMOGLOBIN 31.1 PG (27.0-34.0); MEAN CORPUSCULAR HGB CONC 32.5 % (32.0-36.0); MONO % 9.3 % (0.0-8.0); NEUT % 77.4 % (16.0-70.0); PLATELET COUNT 190 TH/MM3 (150-450); RED BLOOD COUNT 4.09 MIL/MM3 (4.50-5.90); RED CELL DISTRIBUTION WIDTH 14.8 % (11.6-17.2); WHITE BLOOD COUNT 5.2 TH/MM3 (4.0-11.0)
[2016-12-04 12:14] LABS: BLOOD, URINE NEG (NEG); GLUCOSE,URINE NEG (NEG); KETONE, URINE NEG (NEG); MUCUS URINE FEW /lpf (OCC); NITRITE,URINE NEG (NEG); PH, URINE 6.5 (5.0-8.5); SQUAMOUS EPITHELIAL CELL URINE <1 /hpf (0-5); URINE COLOR YELLOW (YELLW/STRAW)
[2016-12-04 12:23] LABS: COMMENT (UR) CATH-CULT NOT IND; CULTURE IF INDICATED CATH CULTURE NOT IND; MAGNESIUM 2.4 MG/DL (1.5-2.5); POTASSIUM 4.4 MEQ/L (3.5-5.1)
--- NOTE | 2016-12-04 13:12 | RADRPT ---
EXAM DATE/TIME: 12/04/2016 12:45 [facility] COMPARISON: No previous studies available for comparison. INDICATIONS : Altered mental status, hallucinations. RADIATION DOSE: 39.66 CTDIvol (mGy) MEDICAL HISTORY : Alzheimer's Carcinoma, colon. Chronic obstructive pulmonary disease.Hypertension. SURGICAL HISTORY : None. ENCOUNTER: Initial ACUITY: 1 week PAIN SCALE: 0/10 LOCATION: cranial TECHNIQUE: Multiple contiguous axial images were obtained of the head. Using automated exposure control and adj ustment of the mA and/or kV according to patient size, radiation dose was kept as low as reasonably a chievable to obtain optimal diagnostic quality images. DICOM format image data is available electro nically for review and comparison. FINDINGS: CEREBRUM: The ventricles are normal. There is mild cervical atrophy. Severe calcification is present within the intracranial internal arteries. No evidence of midline shift, mass lesion, hemorrhage or acute infa rction. No extra-axial fluid collections are seen. POSTERIOR FOSSA: The cerebellum and brainstem demonstrate no acute finding. The 4th ventricle is midline. The cerebe llopontine angle is unremarkable. EXTRACRANIAL: The visualized sinuses are clear. SKULL: The calvaria is intact. No evidence of skull fracture. CONCLUSION: No acute intracranial abnormality is identified. Michael Reed MD on December 04, 2016 at 13:08 Board Certified Radiologist. This report was verified electronically.
[2016-12-04 14:36] VITALS: BP 126/58
== END 2016-12-04 14:38 | disposition home or self-care (01) ==
LOC: NEPC 10:55
DX: R41.0 Disorientation, unspecified (principal); E78.00 Pure hypercholesterolemia, unspecified; Z86.73 Personal history of transient ischemic attack (TIA), and cerebral infarction without residual deficits; Z79.899 Other long term (current) drug therapy
CPT/HCPCS: 70450; 80048; 81001; 83735; 85025; 99284